=== PATIENT | male | born 1970 | race Caucasian/White ===

== ENCOUNTER → 2020-02-19 14:46 | Outpatient (CLI) | payer BC, SELFPAY ==
--- NOTE | ~2020-02-19 | CT_ITS ---
EXAMINATION: CT chest wo con EXAM DATE: 02/19/2020 15:04 INDICATION: R91.8 - Other nonspecific abnormal finding of lung field . Pulmonary nodules. TECHNIQUE: Spiral CT of the chest without contrast. Axial, coronal and sagittal images were reviewe d. Coronal maximum intensity pixel images of chest reviewed. The dose-length product (DLP) for this examination was 808.17 mGy-cm. The exposure was tailored according to patient size (auto mA exposur e control), and iterative reconstruction (ASIR) was used as additional dose reduction technique. Comp arison is made to prior examination from 12/19/2018, outside CT reporting 5 and 4 mm right basilar nod ules. FINDINGS: There is 5 mm right middle lobe nodule, axial image 81. 3 mm right lower lobe nodule on im age 87. These are both unchanged. Several other calcified and noncalcified smaller nodules also likel y postinfectious. There is mild faint mosaic attenuation in the upper lobes, probably mild air trappi ng. There are no pleural or pericardial effusions. Tracheobronchial tree is patent. There is no mediastinal, hilar or axillary lymphadenopathy. There is no pneumothorax. Heart normal in size. There is mild coronary arterial calcification, arterial sclerosis. Upper abdomen is unremarkable. There is mild thoracic spondylosis without osteoblastic or osteolytic lesions identified. IMPRESSION: 1. Stable post infectious residua. No suspicious findings. 2. Mild upper lobe mosaic attenuation likely air trapping. Reviewed, dictated and finalized at location A.
== END ==
PROVIDERS: PCP Emergency Medicine; Visit Provider Emergency Medicine
DX: R91.8 Other nonspecific abnormal finding of lung field (principal)
CPT/HCPCS: 71250

== ENCOUNTER → 2020-10-11 15:37 | Outpatient (CLI) | payer BC, SELFPAY ==
--- NOTE | ~2020-10-11 | XR_ITS ---
XR knee LT min 4V DATE: 10/11/2020 16:07 INDICATION: Acute left knee pain TECHNIQUE: 4 views COMPARISON: None FINDINGS: There is tricompartment osteoarthritis, most prominent at the patellofemoral compartment There is a linear lucency along the base of the medial tibial spine of the proximal tibia suggesting possible recent minimally displaced avulsion fracture. Consider MR knee examination. Otherwise no fracture or dislocation or joint effusion, periosteal reaction or bone destruction, radi opaque intra-articular loose body or chondrocalcinosis is evident. IMPRESSION: Suspected minimally displaced avulsion fracture of the medial tibial spine of the proxima l tibia; consider MR left knee evaluation Tricompartment osteoarthritis Reviewed, dictated and finalized at location A. IMPRESSION: Suspected minimally displaced avulsion fracture of the medial tibia l spine of the proximal tibia; consider MR left knee evaluation Tricompartment osteoarthritis
== END ==
DX: M17.12 Unilateral primary osteoarthritis, left knee (principal)
CPT/HCPCS: 73564

== ENCOUNTER → 2020-10-13 10:08 | Outpatient (CLI) | payer BC, SELFPAY ==
--- NOTE | ~2020-10-13 | MR_ITS ---
EXAMINATION: MR knee LT wo con DATE: 10/13/2020 10:54 INDICATION: Displaced bicondylar fracture of the left tibia present with anterior and posterior left knee pain. TECHNIQUE: Magnetic resonance imaging (MRI) of the left knee was performed without intravenous contra st. Sequences included coronal PD-weighted FSE, coronal PD-weighted FS FSE, sagittal T2-weighted FSE , sagittal PD-weighted FS FSE and axial PD weighted fat saturated FSE. COMPARISON: None. FINDINGS: Medial compartment: Medial meniscus is normal. Deep chondral ulceration and fissuring without degenerative subchondral ch anges along the lateral aspect of the anterior weightbearing medial femoral condyle. Single small cho ndral fissure involving less than 50% the cartilage thickness at the central aspect of the medial tib ial plateau. Lateral compartment: Lateral meniscus is normal. Deep chondral ulceration and fissuring with subtle underlying cortical ir regularity and small region of subarticular cystic change at the anterior weightbearing lateral femor al condyle. Mild partial-thickness cartilage loss with smooth chondral surface at the lateral side of the lateral tibial plateau. Patellofemoral compartment: Extensive full/near full-thickness chondral ulceration along the medial half of the lateral tibial pl ateau, apical ridge of the patella along the lateral half of the medial patellar facet. There is subt le irregularity to the articular cortex with subarticular edema and cystic change along the lateral f acet. Similar focal/near full-thickness chondral ulceration with mild subarticular edema at the cepha lad aspect of the lateral trochlea and trochlear groove. Small marginal osteophytes are present. Ligaments and tendons: Anterior cruciate ligament is normal. There is a band of thickening, increased signal and peripheral organized architecture to the ligament fibers at the central aspect of the posterior cruciate ligamen t suggesting at least high-grade partial if not complete tear. The medial collateral ligament and fib ular collateral ligament complex are normal. Quadriceps tendon is normal. Mild tendinopathy in the pr oximal patellar tendon. The visualized medial and lateral hamstring tendons as well as the iliotibial band are normal. Fluid: Moderate-sized left knee joint effusion. No loose osteochondral bodies identified. Osseous/other: Bone alignment is normal. No fracture or pathologic marrow replacing process. IMPRESSION: 1. At least high-grade partial if not complete tear of the central posterior cruciate ligament. 2. Moderate to severe patellofemoral osteoarthritis with extensive high-grade chondromalacia. 3. Mild osteoarthritis in the medial and lateral compartments with small region of moderate grade cho ndromalacia in the medial compartment and small region of high-grade chondral malacia in the lateral compartment. 4. Moderate left knee joint effusion. Reviewed, dictated and finalized at location A. IMPRESSION: 1. At least high-grade partial if not complete tear of the central posterior cr uciate ligament. 2. Moderate to severe patellofemoral osteoarthritis with extensive high-grade c hondromalacia. 3. Mild osteoarthritis in the medial and lateral compartments with small region of moderate grade chondromalacia in the medial compartment and small region of high-grade chondral malacia in the lateral compartment. 4. Moderate left knee joint effusion.
== END ==
PROVIDERS: PCP Emergency Medicine; Visit Provider Emergency Medicine
DX: S82.142A Displaced bicondylar fracture of left tibia, initial encounter for closed fracture (principal); M17.12 Unilateral primary osteoarthritis, left knee; M25.462 Effusion, left knee
CPT/HCPCS: 73721

== ENCOUNTER → 2022-04-06 09:15 | Outpatient (CLI) | payer BC, SELFPAY ==
--- NOTE | ~2022-04-06 | CT_ITS ---
EXAMINATION: CT lung screening DATE: 04/06/2022 09:28 INDICATION: Lung cancer screening TECHNIQUE: Computed tomography (CT) of the chest was performed without intravenous contrast. The dose -length product was 396.30 mGy-cm. Automated exposure control and iterative reconstruction technique were employed. COMPARISON: CT dated 02/19/2020 FINDINGS: Heart size is normal. No significant pleural or pericardial effusion. No thoracic lymphaden opathy. The upper abdomen is unremarkable. Stable 5 mm right middle lobe nodule, image 82. Stable 3 m m right lower lobe nodule, image 89. Stable left upper lobe scarring with associated calcification. T here are few additional scattered pulmonary nodules measuring 2 mm or less. There is emphysema. No pn eumothorax. No endobronchial lesions. Mild thoracic spondylosis. IMPRESSION: 1. Lung-RADS category 2: Benign appearance or behavior. Continue annual screening with noncontrast lo w-dose chest CT in 12 months. Reviewed, dictated and finalized at location A. INESS PARAPROFESSIONAL IMPRESSION: 1. Lung-RADS category 2: Benign appearance or behavior. Continue annual screeni ng with noncontrast low-dose chest CT in 12 months.
== END ==
PROVIDERS: PCP Emergency Medicine; Visit Provider Physician Assistant
DX: Z12.2 Encounter for screening for malignant neoplasm of respiratory organs (principal); F17.210 Nicotine dependence, cigarettes, uncomplicated
CPT/HCPCS: 71271

== ENCOUNTER 2023-04-05 08:40 | Emergency (ER) | payer BC, SELFPAY ==
[2023-04-05 08:53] VITALS: BP 132/57; PULSE 68; RESP 20; TEMP 36.6; O2SAT 95
--- NOTE | 2023-04-05 09:33 | WPDEDEXPGENP ---
HPI - General Ped General Chief complaint: Fever Stated complaint: Bodyaches/Fever Time Seen by Provider: 04/05/23 09:25 Source: patient and RN notes reviewed Mode of arrival: ambulatory Limitations: no limitations Nursing Documentation: reviewed/agree History of Present Illness HPI narrative: Patient presents today with a 2 day history of fever up to 101.9, headache, body aches, cough. Denies shortness of breath or chest pain. He has been taking DayQuil and NyQuil with mild relief. Related Data Allergies Allergy/AdvReac Type Severity Reaction Status Date / Time No Known Allergies Allergy Verified 03/06/23 10:29 Pediatric Review of Systems Review of Systems: CONSTITUTIONAL: Denies chills, or sweats.+ body aches, fever EYES: Denies visual changes, redness, or discharge. ENT: Denies rhinorrhea, congestion, sore throat, or otalgia. CARDIOVASCULAR: Denies chest pain, palpitations, or edema. RESPIRATORY: Denies dyspnea.+ cough GASTROINTESTINAL: Denies abdominal pain, nausea, vomiting, or diarrhea. GENITOURINARY: Denies dysuria or hematuria. SKIN: Denies rash, itching, or wounds. MUSCULOSKELETAL: Denies back pain, joint pain, or myalgia. NEUROLOGIC: Denies numbness, tingling, or weakness.+ headache PSYCH: Denies depression or anxiety. PMFSH Past Medical History Medical History Anxiety disorder, unspecified Carpal tunnel syndrome Essential hypertension Hernia Hyperlipidemia Obstructive sleep apnea (adult) (pediatric) RHONDA (obstructive sleep apnea) Pure hypercholesterolemia Tobacco use Surgical History Surgical History History of left knee surgery History of right knee surgery Family History Family History Father Hypertension Mother Cerebrovascular accident Family history of thyroid problem Sibling , Down's syndrome No problems noted. Social History Social History Social History: 1 cup of coffee daily Smoking packs per day: 2 Smoking cigarettes per day: 40.0 Years smoked: 30 Smoking pack-years: 60.00 Smoking status: Current every day smoker Additional smoking assessment comments: Smoked heavily until 10 yrs ago, stopped, started 2 years ago. 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 Please see nursing chart for further information. There is no relevant family history pertinent to the presenting complaint Pediatric Exam Narrative: Physical exam: GENERAL: Mildly ill-appearing, well-nourished, and in no acute distress. HEAD: Normocephalic, atraumatic. EYES: EOMI. No redness or drainage. Conjunctivae normal. ENT: Mucous membranes pink and moist. Nares clear. No rhinorrhea. TMs normal bilaterally. Throat normal. Uvula midline. NECK: Normal AROM. Supple. No lymphadenopathy. CHEST: No respiratory distress. Clear to auscultation. HEART: Regular rate and rhythm. No murmur appreciated. EXTREMITIES: Normal range of motion. No edema. SKIN: Warm, dry, no rash. Capillary refill normal. Normal skin turgor. NEURO: No focal deficits. Alert and oriented x3. Gait steady. PSYCH: Normal affect. No signs of depre
== END 2023-04-05 09:40 | disposition home or self-care (01) ==
PROVIDERS: Emergency Provider Nurse Practitioner; PCP Emergency Medicine
DX: U07.1 COVID-19 (principal); I10 Essential (primary) hypertension; E78.5 Hyperlipidemia, unspecified; F17.210 Nicotine dependence, cigarettes, uncomplicated
CPT/HCPCS: 87426; 87804; 99213; C9803; G0463

== ENCOUNTER 2023-05-03 08:42 | Outpatient (CLI) | payer BC, SELFPAY ==
--- NOTE | ~2023-05-03 | CT_ITS ---
CT Scan of the Chest without Contrast: Clinical Indication: Lung cancer screening, personal history of nicotine dependence Technique: Contiguous sections were acquired throughout the chest without intravenous contrast. Dose reduction technique was used on this scan by utilizing automated exposure control and iterative recon struction technique. The dose-length product (DLP) was 684.47 mGy-cm. COMPARISON: 04/06/2022 Findings: There is no evidence of any significant mediastinal, hilar or axillary lymphadenopathy. The mediastin al soft tissues appear normal. There is no evidence of pleural or pericardial effusion. Stable 3 mm right lower lobe pulmonary nodule noted. Stable 5 mm right middle lobe pulmonary nodule n oted. There is mild emphysema in the upper lobes. Calcified left upper lobe granuloma noted. Images through the upper abdomen reveal no abnormalities. Impression: Lung RADS 2: Benign appearance. 12 month follow-up screening CT advised. Reviewed, dictated and finalized at [facility]. EL RIBS SOLDERER Impression: Lung RADS 2: Benign appearance. 12 month follow-up screening CT advised.
== END 2023-05-03 08:43 | disposition home or self-care (01) ==
LOC: ANHIMG 08:45
PROVIDERS: PCP Emergency Medicine; Visit Provider Nurse Practitioner Family
DX: Z12.2 Encounter for screening for malignant neoplasm of respiratory organs (principal); Z87.891 Personal history of nicotine dependence
CPT/HCPCS: 71271

== ENCOUNTER 2023-06-15 09:24 | Outpatient (CLI) | payer BC, SELFPAY ==
--- NOTE | ~2023-06-15 | MR_ITS ---
MRI of the right knee Clinical history: Medial meniscus tear Technique: Coronal proton density and proton density-weighted images, sagittal proton-density and T2 fat-sat images, and axial proton-density fat-saturated images were acquired. Findings: Anterior and posterior cruciate ligaments are intact. Medial collateral ligament and the la teral collateral ligament complex are intact. Popliteus tendon is intact. There is large radial tear at the posterior root of the medial meniscus. No lateral meniscal tear lynne dent. There is high-grade chondromalacia the lateral femoral condyle with focal areas of subchondral cystic change. There is extensive high-grade chondromalacia on both sides of the medial compartment, with m ild subchondral reactive marrow edema in the medial femoral condyle. There is extensive grade IV alex dromalacia patella along the apex and lateral patellar facet. There is moderate to high-grade femoral trochlear chondromalacia, especially centrally and along the lateral facet. Small tricompartmental o steophytes are present. Extensor mechanism is intact. Moderate joint effusion present. No Baptiste's cyst. Impression: Large radial tear at the posterior root of the medial meniscus. Advanced tricompartmental osteophytosis, as detailed above. Moderate joint effusion. Reviewed, dictated and finalized at location M. WEB ARCHITECT Impression: Large radial tear at the posterior root of the medial meniscus. Advanced tricompartmental osteophytosis, as detailed above. Moderate joint effusion.
== END 2023-06-15 09:25 | disposition home or self-care (01) ==
PROVIDERS: PCP Emergency Medicine; Visit Provider Orthopaedic Surgery
DX: S83.241A Other tear of medial meniscus, current injury, right knee, initial encounter (principal); X58.XXXA Exposure to other specified factors, initial encounter; M25.461 Effusion, right knee; M17.11 Unilateral primary osteoarthritis, right knee
CPT/HCPCS: 73721

== ENCOUNTER 2024-07-21 10:17 | Outpatient (CLI) | payer BC, SELFPAY ==
--- NOTE | ~2024-07-21 | CT_ITS ---
EXAMINATION:CT lung screening DATE: 07/21/2024 10:35 INDICATION: Personal history of nicotine dependence. TECHNIQUE: Computed tomography (CT) of the chest was performed without intravenous contrast. Automate d exposure control and iterative reconstruction technique were employed. The dose-length product (DLP ) was 509.67 mGy-cm. COMPARISON: Chest CT 05/03/2023 FINDINGS: There is mild emphysema. There is a stable 5 mm nodule in right middle lobe. There is a sta ble 3 mm nodule in right middle lobe. There is a stable 4 mm nodule in right lower lobe. There is a 3 mm nodule in right upper lobe. A calcified left lung nodule is consistent with old granulomatous dis ease. No pleural effusion. The heart size is normal. No pericardial effusion. There is mild thoracic spondylosis. There is severe cervical spondylosis. IMPRESSION: 1. Lung-RADS category 2: Benign appearance or behavior. Continue annual screening with noncontrast lo w-dose chest CT in 12 months. Reviewed, dictated and finalized at location A. IMPRESSION: 1. Lung-RADS category 2: Benign appearance or behavior. Continue annual screeni ng with noncontrast low-dose chest CT in 12 months.
--- OUTSIDE RECORDS SUMMARY | 2024-07-21 12:07 | XMS_ITS | Clinical Summary ---
Author Organization [facility] [place] [address] Address [address] [place] [id number] Care Team Providers Care Credit Report Checker Name Role Phone Deny Hernandez MD Primary Care Provide r Allergies Active Allergy Reactions Criticality Noted Date Comments Rhys Inhibitors Cough Low 01/03/2018 Medications amLODIPine (NORVASC) 10 mg tablet Take 1 tablet (10 mg total) by mouth daily 10/24/2015 Active atorvastatin (LIPITOR) 20 mg tablet Take 1 tablet (20 mg total) by mouth daily 06/30/2015 Active losartan-hydroc hlorothiazide (HYZAAR) 100-25 mg per tablet Take 1 tablet by mouth daily 03/20/2016 Active metoprolol XL (TOPROL-XL) 25 mg extended release tablet 03/13/2023 Acti ve venlafaxine XR (EFFEXOR-XR) 75 mg 24 hr capsule Take 1 capsule (75 mg total) by mouth daily 03/29/2016 Active Active Problems No known active problems Surgical History Surgery Date Site/Laterality Comments KNEE ARTHROSCOPY Medical History Medical History Date Comments Hypertension Hypercholesteremia Social History Tobacco Use Types Packs/Day Years Used Date Smoking Tobacco: Every Day Cigarettes Smokeless Tobacco: Never Tobacco Cessation:Ready to Q uit: Not Asked; Counseling Given: Not Answered Personal Safety Answer Date Recorded Getting School Help Needed Not on file 05/31 Sex and Gender Information Value Date Recorded Sex Assigned at Not on file Legal Sex Male 11:26 PM SUPERVISOR ORE DRESSING Gender Identity Not on file Sexual Orientation Not on file Obstetrics History Last Filed Vital Signs Vital Sign Reading Time Taken Comments Blood Pressure 145/68 05/31/2023 12:48 PM SUPERVISOR ORE DRESSING Pulse 64 05/31/2023 12:48 PM SUPERVISOR ORE DRESSING Temperature - - Respiratory Rate - - Oxygen Saturation - - Inhaled Oxygen Concentration - - Weight 142.4 kg (314 lb) 05/31/2023 12:48 PM SUPERVISOR [employer]RE DRESSING Height 177.8 cm (5' 10 ) 05/31/2023 12:48 PM SUPERVISOR ORE DRESSING Body Mass Index 45.05 05/31/2023 12:48 PM SUPERVISOR ORE DRESSING Plan of Treatment Health Maintenance Due Date Last Done Comments Colon Cancer Screening-Colonoscopy 1968 Depression Screening 1968 Hepatitis C Screening 1968 Prostate Cancer Screening-PSA 1968 Hepatitis B Screening 1986 Regular Well Visit/Exam 18-64 1986 Pneumococcal vaccine <65 (1 of 2 - PCV) 07/24/1987 Zoster Vaccine (1 of 2) 2018 DTaP/Tdap/Td Vaccine (2 - Td or Tdap) 02/09/2020 Influenza Vaccine (#1) 2023 Insurance Firethorn OOS Firethorn OOS Member Subscriber Plan / Payer (Ef fective 2020-Present) Name:Ghanshyam Suresh Relation to Subscriber:Self Name:Ghanshyam Suresh Payer ID:[id number] (NAIC) Type: ALLIANCE Address: [facility] [id number] [id number] Care Teams Credit Report Checker Relationship Specialty Start Date End Date Deny Hernandez MD [address] [place] [address] PCP - General Emergency Medicine 05/31/23
--- OUTSIDE RECORDS SUMMARY | 2024-07-21 12:07 | XMS_ITS | Referral Summary ---
Author Organization [facility] Address [address] [place] [id number] Care Team Providers Care Ice Cutter Name Role Phone Deny Hernandez MD Primary [...] Active Active Problems No known active problems Social History Tobacco Use Types Packs/Day Years Used Date Smoking Tobacco: Every Day Cigarettes Smokeless Tobacco: Never Tobacco Cessation:Ready to Q uit: Not Asked; Counseling Given: Not Answered Personal Safety Answer Date Recorded Getting School Help Needed Not on file 05/31 Sex and Gender Information Value Date Recorded Sex Assigned at Not on file Legal Sex Male 11:26 PM INSURANCE OFFICE MANAGER Gender Identity Not on file Sexual Orientation Not on file Last Filed Vital Signs Vital Sign Reading Time Taken Comments Blood Pressure 145/68 05/31/2023 12:48 PM INSURANCE OFFICE MANAGER Pulse 64 05/31/2023 12:48 PM INSURANCE OFFICE MANAGER Temperature - - Respiratory Rate - - Oxygen Saturation - - Inhaled Oxygen Concentration - - Weight 142.4 kg (314 lb) 05/31/2023 12:48 PM INSURANCE OFFICE MANAGER Height 177.8 cm (5' 10 ) 05/31/2023 12:48 PM INSURANCE OFFICE MANAGER Body Mass Index 45.05 05/31/2023 12:48 PM INSURANCE OFFICE MANAGER Plan of Treatment Not on file Insurance vivio OOS vivio OOS Care Teams Ice Cutter Relationship Specialty Start Date End Date Deny Hernandez MD [address] [place] [address] PCP - General Emergency Medicine 05/31/23
--- OUTSIDE RECORDS SUMMARY | 2024-07-21 12:07 | XMS_ITS | Clinical Summary ---
Author Organization [facility] Address [address] [place] [address] Care Team Providers Care Hosiery Bagger Name Role Phone Prakash Kelly MD Primary Care Provider [phone] Allergies Active Allergy Reactions Criticality Noted Date Comments Rhys Inhibitors Cough Low 01/03/2018 Medications amLODIPine (NORVASC) 10 mg tablet Take 10 mg by mouth daily. 10/24/2015 Active atorvastatin (LIPITOR) 20 mg tablet Take 20 mg by mouth daily. 06/30/2015 Active losartan-hydroCH LOROthiazide (HYZAAR) 100-25 mg tablet Take 1 Tablet by mouth daily. 03/20/2016 Active venlafaxine (EFFEXOR XR) 75 mg Extended Release 24 hour capsule Take 75 mg by mouth daily. 03/29/2016 Active Active Problems Patient Care Coordination No te Formatting of this note migh t be different from the original. DME:[facility]; CPAP Pt requires 30 day download faxed to his empolyer every month. [employer] Released signed and scanned. Problem Noted Date Diagnosed Date Acute pain of left knee 10/18/2020 Cigarette nicotine dependence without complicati on 02/25/2019 Lung nodule seen on imaging study 02/25/2019 Overview (02/25/2019): managed by Dr Robin ELLIS on CPAP 02/25/2019 Class 3 severe obesity due t o excess calories with body mass index (BMI) of 40.0 to 44.9 in adult 02/25/2019 Family History Medical History Relation Name Comments Hypertension Father Stroke Mother Thyroid Disease Mother No Known Problems Sister 1 No Known Problems Sister 2 No Known Problems Sister 3 Relation Name Status Comments Father Mother Sister 1 Alive Sister 2 Alive Sister 3 Alive Social History Tobacco Use Types Packs/Day Years Used Date Smoking Tobacco: Every Day Cigarettes 1 20 Smokeless Tobacco: Never Alcohol Use Standard Drinks/Week Comments Yes 0 (1 standard drink = 0.6 oz pur e alcohol) Sex and Gender Information Value Date Recorded Sex Assigned at Not on file Legal Sex Male 10:50 PM CDT Gender Identity Not on file Sexual Orientation Not on file Last Filed Vital Signs Vital Sign Reading Time Taken Comments Blood Pressure 145/77 10/18/2020 12:51 PM CDT Pulse 76 02/25/2019 11:07 AM CDT Temperature 36.9 C (98.5 F) 02/25/2019 11:07 AM CDT Respiratory Rate - - Oxygen Saturation 95% 02/25/2019 11:07 AM CDT Inhaled Oxygen Concentration - - Weight 131.5 kg (290 lb) 10/18/2020 12:51 PM CDT Height 177.8 cm (5' 10 ) 10/18/2020 12:51 PM CDT Body Mass Index 41.61 10/18/2020 12:51 PM CDT Plan of Treatment Health Maintenance Due Date Last Done Comments Pre-Diabetes and Diabetes Screening 1968 PNEUMOCOCCAL VACCINE 0-49 YEARS (1 of 2 - PCV) 975 DTAP/TDAP/TD VACCINES (1 - Tdap) 07/24/1987 HEPATITIS B VACCINES (1 of 3 - 19+ 3-dose series) 06/28 COLORECTAL SCREENING 2013 Colorectal Cancer Screening 2013 FIT-DNA Q 3 years 2013 FIT/FOBT Q 1 year 2013 Flex Sig/CT Colonography Q 5 years 2013 ZOSTER VACCINE (1 of 2) 2018 INFLUENZA VACCINE (#1) 2023 03/12/2014 Insurance Care Teams Hosiery Bagger Relationship Specialty Start Date End Date Prakash Kelly MD [facility] [facility] [address] [phone] PCP - General Family Practice 02/17/19
== END 2024-07-21 10:18 | disposition home or self-care (01) ==
PROVIDERS: PCP Emergency Medicine; Visit Provider Physician Assistant
DX: Z12.2 Encounter for screening for malignant neoplasm of respiratory organs (principal); Z87.891 Personal history of nicotine dependence
CPT/HCPCS: 71271